=== PATIENT | male | born 2000 | race African-American/Black ===

== ENCOUNTER 2024-09-16 15:34 | Emergency (ER) | payer OTHER ==
[~2024-09-16] VITALS: Ht 190.5 cm; Wt 105.0 kg
[2024-09-16 15:36] VITALS: BP 152/93; PULSE 88; RESP 16; TEMP 98.5; O2SAT 100
[2024-09-16 16:20] LABS: BASOPHILS % 0.3 % (0.0-2.0); EOSINOPHILS % 8.7 % (0.0-5.0); HEMATOCRIT. 44.7 % (42.0-52.0); HEMOGLOBIN. 14.7 g/dL (14.0-18.0); LYMPHOCYTES % 26.4 % (20.0-50.0); MEAN CORPUSCULAR HEMOGLOBIN 29.2 pg (28.0-32.0); MEAN CORPUSCULAR HGB CONC 32.9 g/dL (31.0-37.0); MEAN CORPUSCULAR VOLUME 88.9 fL (80.0-94.0); MEAN PLATELET VOLUME 8.5 fl (7.4-10.4); MONOCYTES % 9.4 % (2.0-8.0); NEUTROPHILS % 55.2 % (40.0-76.0); PLATELET 212 x1000/uL (130-400); RED BLOOD CELL COUNT 5.03 mill/uL (4.7-6.1); WHITE BLOOD COUNT 6.3 x1000/uL (4.5-11.0)
[2024-09-16 16:26] LABS: PROTHROMBIN TIME 10.8 sec (9.6-11.0)
[2024-09-16 16:33] LABS: CHLORIDE 107 mEq/L (98-107); POTASSIUM 3.7 mEq/L (3.5-5.1); SODIUM 143 mEq/L (136-145)
[2024-09-16 16:34] LABS: CALCIUM 9.8 mg/dL (8.7-10.4); CARBON DIOXIDE 32 mEq/L (21-32)
[2024-09-16 16:39] LABS: CREATININE 1.3 mg/dL (0.6-1.3); GLUCOSE 111 mg/dL (70-105); UREA NITROGEN BLOOD 7 mg/dL (9-23)
[2024-09-16 16:41] LABS: ALANINE AMINOTRANSFERASE 40 IU/L (10-49); ALBUMIN 4.6 g/dL (3.2-4.8); ASPARTATE AMINOTRANSFERASE 30 IU/L (<34); BILIRUBIN DIRECT 0.3 mg/dL (<=3.0); BILIRUBIN TOTAL 0.9 mg/dL (0.1-1.0); PROTEIN TOTAL 7.8 g/dL (6.0-8.3)
[2024-09-16 17:05] LABS: TROPONIN I HIGH SENSITIVITY < 4 ng/L (3.0-53)
== END 2024-09-16 18:58 | disposition home or self-care (01) ==
LOC: ER 15:34
DX: R51.9 Headache, unspecified (principal)
CPT/HCPCS: 36415; 71045; 80048; 80076; 84484; 85025; 93005; 99285